=== PATIENT | female | born 1970 | race Two or more races ===

== ENCOUNTER 2020-12-02 12:54 | Emergency (ER) | payer OTHER ==
[2020-12-02 13:23] VITALS: TEMP 98.1; BMI 28.3
[2020-12-02 16:18] LABS: BASO % 0.5 % (0-2.0); EOS % 1.4 % (0-4.5); HEMATOCRIT 41.1 % (32.4-45.2); HEMOGLOBIN 13.8 GM/dL (10.7-15.3); LYMPH % 33.3 % (8-40); MCH 30.5 pg (25.7-33.7); MCHC 33.6 g/dl (32.0-36.0); MEAN CELL VOLUME 90.8 fl (80-96); MEAN PLT VOLUME 8.9 fl (7.5-11.1); MONO % 9.8 % (3.8-10.2); PLATELET COUNT 439 K/MM3 (134-434); RBC 4.53 M/mm3 (3.60-5.2); RDW 14.5 % (11.6-15.6); WHITE BLOOD COUNT 7.6 K/mm3 (4.0-10.0)
[2020-12-02 16:38] LABS: CHLORIDE 106 mmol/L (98-107); SODIUM 139 mmol/L (136-145)
[2020-12-02 16:40] LABS: CALCIUM 9.4 mg/dL (8.5-10.1)
[2020-12-02 16:41] LABS: ALBUMIN 4.1 g/dl (3.4-5.0); ANION GAP 6 MMOL/L (8-16); BLOOD UREA NITROGEN 10.4 mg/dL (7-18); CO2 28 mmol/L (21-32); GLUCOSE,RANDOM 101 mg/dL (74-106)
[2020-12-02 16:44] LABS: CREATININE 0.6 mg/dL (0.55-1.3); SGOT/AST 15 U/L (15-37); SGPT/ALT 23 U/L (13-61)
[2020-12-02 16:46] LABS: BILIRUBIN,TOTAL 0.3 mg/dL (0.2-1)
[2020-12-02 16:47] LABS: ALK PHOS 89 U/L (45-117)
[2020-12-02 16:49] LABS: N-TERMINAL BNP 28.4 pg/ml (5-125)
[2020-12-02 17:44] LABS: PH,URINE 6.5 (5.0-8.0); URINE APPEARANCE CLEAR; URINE BILIRUBIN NEGATIVE (NEGATIVE); URINE COLOR YELLOW; URINE GLUCOSE (UA) NEGATIVE (NEGATIVE); URINE KETONE NEGATIVE (NEGATIVE); URINE LEUK ESTERASE NEGATIVE (NEGATIVE); URINE NITRITE NEGATIVE (NEGATIVE); URINE PROTEIN NEGATIVE (NEGATIVE); URINE UROBILINOGEN 0.2 mg/dL (0.2-1.0)
[2020-12-02 20:10] VITALS: BP 131/78; PULSE 78
== END 2020-12-02 21:07 | disposition home or self-care (01) ==
LOC: JER 12:54
DX: R05 Cough (principal)
CPT/HCPCS: 36415; 71250-TC; 71275-TC; 80053; 81003; 82550; 83605; 83880; 84484; 85025; 87040; 87804; 93005; 93010; 99285-25; C9803; Q9967; U0003; U0005